=== PATIENT | female | born 1990 | race African-American/Black ===

== ENCOUNTER 2017-01-16 03:27 | Emergency (ER) | payer MEDICARE, MEDICAID ==
[~2017-01-16] VITALS: Ht 172.7 cm; Wt 91.2 kg
[~2017-01-16 03:27] MED LIST: DIVA125T12; DIVA500T53 PO; ENA2.5T PO; ESCI10TA PO; METF-370 PO; RISPERIDOL; ZIPR80CA8 PO; [UNRECOGNIZED DRUG - OTHER] PO; ativan
[2017-01-16] MEDS ORDERED: HALOPERIDOL LACTATE 5 MG/ML INJ VIAL IM ONE (07:45)
[2017-01-16 07:50] LABS: Basophils # (auto) 0 uL; Basophils % (auto) 0.3 % (0.0-2.0); CONDITION AutoValidated; DEFINITIVE SEE PRINTOUT; Eosinophils # (auto) 0.1 uL; Eosinophils % (auto) 1.2 % (0.0-7.0); Hematocrit 39.9 % (36.0-46.0); Hemoglobin 12.7 g/dL (12.2-16.2); Lymphocytes # (auto) 1.9 uL; Lymphocytes % (auto) 17.4 % (10.0-50.0); Mean Corpuscular Hemoglobin 26.3 pg (28.0-32.0); Mean Corpuscular Hgb Conc. 31.7 g/dL (32.0-36.0); Mean Corpuscular Volume 82.7 fL (80.0-100.0); Mean Platelet Volume 8.6 fL (7.4-10.4); Monocytes # (auto) 0.5 uL; Neutrophils # (auto) 8.2 uL; Neutrophils % (auto) 76.1 % (37.0-80.0); Platelet Count (auto) 302 10^3/uL (140-450); Red Cell Distribution Width 14.4 % (11.6-16.0); White Blood Cell 10.7 10^3/uL (4.4-10.8)
[2017-01-16 08:09] LABS: Albumin 3.8 g/dL (3.4-5.0); BUN/Creatinine Ratio 14.5; Potassium 3.9 mmol/L (3.5-5.1)
[2017-01-16 08:12] LABS: Bilirubin, Total 0.3 mg/dL (0.2-1.0); Total Protein 8.1 g/dL (6.4-8.2)
[2017-01-16 08:14] LABS: Urine RBC None Seen /hpf (0 - 4)
[2017-01-16 08:30] LABS: Urine Bilirubin Negative (Negative); Urine Blood Negative /uL (Negative); Urine Color Yellow (Yellow); Urine Glucose Normal (Normal); Urine Ketone Negative (Negative); Urine Nitrite Negative (Negative); Urine Squamous Epithelial Cell FEW /hpf (<5); Urine Urobilinogen Normal (Negative)
[2017-01-16 08:58] VITALS: BP 146/66
[2017-01-16 09:35] LABS: Salicylate < 1.7 mg/dL (2.8-20.0)
[2017-01-16 09:41] LABS: Acetaminophen < 2.0 ug/mL (10-30)
== END 2017-01-16 09:59 | disposition left against medical advice (07) ==
LOC: EDBD 03:27 → ER 03:27
DX: F29 Unspecified psychosis not due to a substance or known physiological condition (principal); F41.9 Anxiety disorder, unspecified; J45.909 Unspecified asthma, uncomplicated; E11.9 Type 2 diabetes mellitus without complications; I10 Essential (primary) hypertension; F31.9 Bipolar disorder, unspecified; F20.9 Schizophrenia, unspecified; Z93.0 Tracheostomy status; Z53.29 Procedure and treatment not carried out because of patient's decision for other reasons
CPT/HCPCS: 36415; 80053; 80307; 80320; 80329; 81001; 84702; 85025; 96372; 99284; J1630

== ENCOUNTER 2017-01-21 00:17 | Emergency (ER) | payer MEDICARE, MEDICAID ==
[~2017-01-21] VITALS: Ht 175.3 cm; Wt 99.8 kg
[2017-01-21 01:15] LABS: Basophils # (auto) 0 uL; Basophils % (auto) 0.3 % (0.0-2.0); DEFINITIVE SEE PRINTOUT; Eosinophils # (auto) 0.2 uL; Eosinophils % (auto) 1.8 % (0.0-7.0); Hematocrit 36.4 % (36.0-46.0); Hemoglobin 11.8 g/dL (12.2-16.2); Lymphocytes # (auto) 2.2 uL; Lymphocytes % (auto) 19.7 % (10.0-50.0); Mean Corpuscular Hemoglobin 26.5 pg (28.0-32.0); Mean Corpuscular Hgb Conc. 32.3 g/dL (32.0-36.0); Mean Platelet Volume 8.6 fL (7.4-10.4); Monocytes # (auto) 0.6 uL; Monocytes % (auto) 5.3 % (0.0-12.0); Neutrophils # (auto) 8.2 uL; Neutrophils % (auto) 72.9 % (37.0-80.0); Platelet Count (auto) 335 10^3/uL (140-450); Red Cell Distribution Width 13.4 % (11.6-16.0); White Blood Cell 11.2 10^3/uL (4.4-10.8)
[2017-01-21 01:37] LABS: Acetaminophen < 2.0 ug/mL (10-30); Albumin 3.4 g/dL (3.4-5.0); BUN/Creatinine Ratio 8.1; Calcium 8.5 mg/dL (8.5-10.1); Potassium 3.5 mmol/L (3.5-5.1); Salicylate < 1.7 mg/dL (2.8-20.0)
[2017-01-21 01:40] LABS: Bilirubin, Total 0.1 mg/dL (0.2-1.0); Total Protein 6.9 g/dL (6.4-8.2)
[2017-01-21] MEDS ORDERED: ALBUTEROL SULF 2.5 MG/0.5ML(0.5%) NEB SOLN NEB ONE (03:45)
[2017-01-21] MEDS ORDERED: IPRATROPIUM BROM 0.5 MG/2.5ML INH SOL NEB ONE (03:45)
[2017-01-21 04:30] LABS: Urine RBC None Seen /hpf (0 - 4)
[2017-01-21 04:48] LABS: Urine Bilirubin Negative (Negative); Urine Blood Negative /uL (Negative); Urine Color Yellow (Yellow); Urine Glucose Normal (Normal); Urine Ketone Negative (Negative); Urine Nitrite Negative (Negative); Urine Squamous Epithelial Cell FEW /hpf (<5); Urine Urobilinogen Normal (Negative); Urine pH 6.5 (5.0-8.0)
[2017-01-21] MEDS ORDERED: traMADol HCL 50 MG TAB PO ONE (12:15)
[2017-01-21] MEDS ORDERED: LORazepam 0.5 MG TAB PO ONE (15:00)
[2017-01-21] MEDS ORDERED: LORazepam 2MG/ML-1ML VIAL IM ONE (21:15)
[2017-01-22 05:09] VITALS: BP 134/77
== END 2017-01-22 06:01 | disposition short-term general hospital (02) ==
LOC: EDBD 00:17 → ER 00:23
DX: F32.9 Major depressive disorder, single episode, unspecified (principal); T18.8XXA Foreign body in other parts of alimentary tract, initial encounter; F20.9 Schizophrenia, unspecified; J45.909 Unspecified asthma, uncomplicated; I10 Essential (primary) hypertension; E11.9 Type 2 diabetes mellitus without complications; X83.8XXA Intentional self-harm by other specified means, initial encounter; Y93.89 Activity, other specified; Y99.8 Other external cause status; Y92.89 Other specified places as the place of occurrence of the external cause
CPT/HCPCS: 36415; 74176; 80053; 80307; 80329; 81001; 84702; 85025; 94640; 96372; 99285; J2060

== ENCOUNTER 2017-02-16 19:31 | Emergency (ER) | payer MEDICARE, MEDICAID ==
[~2017-02-16] VITALS: Ht 172.7 cm; Wt 131.5 kg
[2017-02-16 20:17] VITALS: BP 117/73
[2017-02-16 21:09] LABS: Basophils # (auto) 0 uL; Basophils % (auto) 0.2 % (0.0-2.0); CONDITION Y; DEFINITIVE SEE PRINTOUT; Eosinophils # (auto) 0.2 uL; Eosinophils % (auto) 1.5 % (0.0-7.0); Hematocrit 37.9 % (36.0-46.0); Hemoglobin 12.3 g/dL (12.2-16.2); Lymphocytes # (auto) 2.3 uL; Lymphocytes % (auto) 16.2 % (10.0-50.0); Mean Corpuscular Hgb Conc. 32.5 g/dL (32.0-36.0); Mean Corpuscular Volume 83.2 fL (80.0-100.0); Monocytes # (auto) 0.6 uL; Monocytes % (auto) 3.9 % (0.0-12.0); Neutrophils % (auto) 78.2 % (37.0-80.0); Platelet Count (auto) 304 10^3/uL (140-450); Red Cell Distribution Width 16.1 % (11.6-16.0); White Blood Cell 14.1 10^3/uL (4.4-10.8)
[2017-02-16 21:42] LABS: Albumin 3.5 g/dL (3.4-5.0); BUN/Creatinine Ratio 8.4; Bilirubin, Total 0.2 mg/dL (0.2-1.0); Calcium 8.8 mg/dL (8.5-10.1); Potassium 3.4 mmol/L (3.5-5.1); Total Protein 7.6 g/dL (6.4-8.2)
== END 2017-02-16 23:31 | disposition left against medical advice (07) ==
LOC: ER 19:36
DX: R06.02 Shortness of breath (principal); Z53.21 Procedure and treatment not carried out due to patient leaving prior to being seen by health care provider
CPT/HCPCS: 36415; 71010; 80053; 85025

== ENCOUNTER 2017-03-15 10:06 | Emergency (ER) | payer MEDICARE, MEDICAID | END 2017-03-15 10:37 | disposition left against medical advice (07) | LOC: ER 10:06 | DX: T50.905A Adverse effect of unspecified drugs, medicaments and biological substances, initial encounter (principal); X58.XXXA Exposure to other specified factors, initial encounter; Y93.89 Activity, other specified; Y99.8 Other external cause status; Y92.89 Other specified places as the place of occurrence of the external cause; Z53.21 Procedure and treatment not carried out due to patient leaving prior to being seen by health care provider ==

== ENCOUNTER 2017-03-26 15:02 | Emergency (ER) | payer MEDICARE, MEDICAID ==
[~2017-03-26] VITALS: Ht 172.7 cm; Wt 140.2 kg
[2017-03-26 15:35] VITALS: BP 135/72
== END 2017-03-26 18:11 | disposition left against medical advice (07) ==
LOC: ER 15:09
DX: S73.101A Unspecified sprain of right hip, initial encounter (principal); J45.909 Unspecified asthma, uncomplicated; E11.9 Type 2 diabetes mellitus without complications; I10 Essential (primary) hypertension; Z88.6 Allergy status to analgesic agent; Z53.29 Procedure and treatment not carried out because of patient's decision for other reasons; Z88.8 Allergy status to other drugs, medicaments and biological substances; Z79.899 Other long term (current) drug therapy; W01.0XXA Fall on same level from slipping, tripping and stumbling without subsequent striking against object, initial encounter; Y93.89 Activity, other specified; Y99.8 Other external cause status; Y92.89 Other specified places as the place of occurrence of the external cause